=== PATIENT | female | born 1965 | race African-American/Black ===

== ENCOUNTER 2017-09-29 21:08 | Emergency (ER) | payer SELFPAY ==
[~2017-09-29] VITALS: Ht 165.1 cm; Wt 204.1 kg
--- NOTE | 2017-09-29 22:36 | PHYS DOC ---
Past Medical History Past Medical History: CVA, Hypertension Past Surgical History: No Surgical History Alcohol Use: None Drug Use: None Adult General Chief Complaint Chief Complaint: ANXIETY/PANIC ATTACK HPI HPI Preliminary note: 51-year-old female presenting to the emergency department after feeling anxious and nauseous when she got in an argument today. Upon arrival the patient has no symptoms is feeling better and wants to be discharged home. She reports chronic hypertension which she has here at triage. Otherwise physical examination is unremarkable. The patient was then discharged home. Onset today. Location generalized. Duration intermittent. patient is comfortable plan. [id number] discharge instructions Review of Systems Review of Systems Constitutional: Denies fever or chills [] Eyes: Denies change in visual acuity, redness, or eye pain [] HENT: Denies nasal congestion or sore throat [] Respiratory: Denies cough or shortness of breath [] Cardiovascular: No additional information not addressed in HPI [] GI: Denies abdominal pain, nausea, vomiting, bloody stools or diarrhea [] : Denies dysuria or hematuria [] Musculoskeletal: Denies back pain or joint pain [] Integument: Denies rash or skin lesions [] Neurologic: Denies headache, focal weakness or sensory changes [] Endocrine: Denies polyuria or polydipsia [] All other systems were reviewed and found to be within normal limits, except as documented in this note. Allergies Allergies Allergies Coded Allergies Type Severity Reaction Last Updated Verified No Known Drug Allergies 09/29/17 No Physical Exam Physical Exam Constitutional: Well developed, well nourished, no acute distress, non-toxic appearance. [] HENT: Normocephalic, atraumatic, bilateral external ears normal, oropharynx moist, no oral exudates, nose normal. [] Eyes: PERRLA, EOMI, conjunctiva normal, no discharge. [] Neck: Normal range of motion, no tenderness, supple, no stridor. [] Cardiovascular:Heart rate regular rhythm, no murmur [] Lungs & Thorax: Bilateral breath sounds clear to auscultation [] Abdomen: Bowel sounds normal, soft, no tenderness, no masses, no pulsatile masses. [] Skin: Warm, dry, no erythema, no rash. [] Back: No tenderness, no CVA tenderness. [] Extremities: No tenderness, no cyanosis, no clubbing, ROM intact, no edema. [] Neurologic: Alert and oriented X 3, normal motor function, normal sensory function, no focal deficits noted. [] Psychologic: Affect normal, judgement normal, mood normal. [] Current Patient Data Vital Signs Vital Signs Date Time Temp Pulse Resp B/P (MAP) Pulse Ox O2 Delivery O2 Flow Rate FiO2 09/30/17 00:43 70 191/108 (135) 98 Room Air 09/30/17 00:13 19 09/29/17 21:23 98.0 98.0 EKG EKG [] Radiology/Procedures Radiology/Procedures [] Course & Med Decision Making Course & Med Decision Making Pertinent Labs and Imaging studies reviewed. (See chart for details) [] Dragon Disclaimer Dragon Disclaimer This electronic medical record was generated, in whole or in part, using a voice recognition dictation system. Departure Departure Impression: Primary Impression: Nausea Disposition: HOME, SELF-CARE Condition: STABLE Patient Instructions: Nausea, Adult Additional Instructions: Thank you for allowing us to participate in your care today. Followup with your primary care physician in 3 days if your symptoms do not improve. Call your Primary Doctor tomorrow and inform them of your visit today. If you do not have a primary care provider you can ask for a list of our primary care providers. Return to the emergency department you have any new or concerning findings. This should be evaluated by the primary care physician and any necessary consulting services for continued management within a few days after discharge. Return to emergency room if you have any new or concerning symptoms including but not limited to fever, chills, nausea, vomiting, intractable pain, any new rashes, chest pain, shortness of air, uncontrolled bleeding, difficulty breathing, and/or vision loss. HAN CAMARGO MD Sep 29, 2017 22:36
[2017-09-30 00:43] VITALS: BP 191/108
== END 2017-09-30 00:50 | disposition home or self-care (01) ==
LOC: ER 21:08
DX: R11.0 Nausea (principal); F41.9 Anxiety disorder, unspecified; I10 Essential (primary) hypertension; Z86.73 Personal history of transient ischemic attack (TIA), and cerebral infarction without residual deficits
CPT/HCPCS: 99283

== ENCOUNTER 2017-10-01 15:37 | Emergency (ER) | payer OTHER ==
[~2017-10-01] VITALS: Ht 162.6 cm; Wt 204.1 kg
--- NOTE | 2017-10-01 16:40 | RAD ---
TIBIA FIBULA RIGHT, KNEE RIGHT 2V Clinical Indication: fell, pain Comparison: None. Technique: Frontal and lateral views of the right knee are obtained. Frontal and lateral views of the right tibia and fibula are obtained. Findings: Prominent, tricompartmental degenerative changes are present involving the right knee. Joint space narrowing of the medial compartment is present. No definite fracture or dislocation is seen. 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 No significant joint effusion is appreciated. Remainder of the distal tibia and fibula appear intact. Visualized ankle joint appears intact. Surrounding soft tissues demonstrate soft tissue swelling and stranding about the knee. IMPRESSION: No definite fracture or dislocation seen. Tricompartmental degenerative changes of the knee present.
--- NOTE | 2017-10-01 16:48 | PHYS DOC ---
Past Medical History Past Medical History: CVA, Hypertension Additional Past Medical Histor: OBESETY Past Surgical History: No Surgical History Alcohol Use: None Drug Use: None Adult General Chief Complaint Chief Complaint: LOWER EXT injury HPI HPI Patient is a 51 year old female who presents by EMS from home after a fall, states her right knee and right leg "just below the knee" hurts. Patient states that she was in her wheelchair and she decided to go lay down in the bed, when ambulating from the wheelchair to the bedroom she became dizzy and fell down, landed on her right side and states that her right knee and leg are painful. She was not able to get up. She pushed her life alert button and EMS came to pick her up. She denies other injury. Patient states she was here 2 days ago after some type of emotional stress with her family and her blood pressure was elevated. Patient has taken her blood pressure medicine today as prescribed. Patient denies head injury. Patient says she has not been hospitalized for about 4 or 5 years. She had a stroke at that time. She was hospitalized at and then went to a rehabilitation in [place]. Patient tells me she sees a primary care doctor at [facility]. Review of Systems Review of Systems Constitutional: Denies fever or chills [] HENT: Denies nasal congestion or sore throat [] Respiratory: Denies cough or shortness of breath [] GI: Denies abdominal pain, nausea, vomiting, bloody stools or diarrhea [] Musculoskeletal: As in history of present illness Neurologic: Denies headache, focal weakness or sensory changes [] Allergies Allergies Allergies Coded Allergies Type Severity Reaction Last Updated Verified No Known Drug Allergies 09/29/17 No Physical Exam Physical Exam Constitutional: Obese female, alert, warm and dry, mentating normally, no acute distress. HENT: Normocephalic, atraumatic, bilateral external ears normal, nose normal. [ ] Eyes: conjunctiva normal, no discharge. [] Neck: Normal range of motion, no stridor. [] Skin: Warm, dry, no erythema, no rash. [] Extremities: Right leg: Due to the extreme obesity, exam is difficult. There is tenderness of the right anterior lower leg below the knee. It is impossible to determine if there is any deformity or swelling. There is no skin abnormality. Ankle and foot appear unremarkable, right foot is warm with good DP pulse, she is able to wiggle her toes. Neurologic: Alert and oriented X 3, normal motor function, no focal deficits noted. [] Current Patient Data Vital Signs Vital Signs Date Time Temp Pulse Resp B/P (MAP) Pulse Ox O2 Delivery O2 Flow Rate FiO2 10/01/17 19:20 64 18 174/84 (114) 100 10/01/17 15:37 98.5 Room Air 98.5 Lab Values Laboratory Tests Test 10/01/17 17:30 10/01/17 18:10 Urine Collection Type Void Urine Color Yellow Urine Clarity Hazy Urine pH 6.0 Urine Specific [place] >=1.030 Urine Protein >=300 mg/dL (NEG-TRACE) Urine Glucose (UA) 100 mg/dL (NEG) Urine Ketones (Stick) Negative mg/dL (NEG) Urine Blood Trace (NEG) Urine Nitrite Negative (NEG) Urine Bilirubin Negative (NEG) Urine Urobilinogen Dipstick 1.0 mg/dL (0.2 mg/dL) Urine Leukocyte Esterase Negative (NEG) Urine RBC Occ /HPF (0-2) Urine WBC 1-4 /HPF (0-4) Urine Squamous Epithelial Cells Mod /LPF Urine Bacteria Moderate /HPF (0-FEW) Urine Hyaline Casts Occasional /HPF Urine Mucus Slight /LPF White Blood Count 11.2 x10^3/uL (4.0-11.0) H Red Blood Count 4.09 x10^6/uL (3.50-5.40) Hemoglobin 9.4 g/dL (12.0-15.5) L Hematocrit 30.8 % (36.0-47.0) L Mean Corpuscular Volume 75 fL (79-100) L Mean Corpuscular Hemoglobin 23 pg (25-35) L Mean Corpuscular Hemoglobin Concent 31 g/dL (31-37) Red Cell Distribution Width 18.9 % (11.5-14.5) H Platelet Count 155 x10^3/uL (140-400) Neutrophils (%) (Auto) 80 % (31-73) H Lymphocytes (%) (Auto) 10 % (24-48) L Monocytes (%) (Auto) 7 % (0-9) Eosinophils (%) (Auto) 2 % (0-3) Basophils (%) (Auto) 1 % (0-3) Neutrophils # (Auto) 8.9 x10^3uL (1.8-7.7) H Lymphocytes # (Auto) 1.1 x10^3/uL (1.0-4.8) Monocytes # (Auto) 0.8 x10^3/uL (0.0-1.1) Eosinophils # (Auto) 0.2 x10^3/uL (0.0-0.7) Basophils # (Auto) 0.1 x10^3/uL (0.0-0.2) Sodium Level 143 mmol/L (136-145) Potassium Level 4.0 mmol/L (3.5-5.1) Chloride Level 109 mmol/L (98-107) H Carbon Dioxide Level 26 mmol/L (21-32) Anion Gap 8 (6-14) Blood Urea Nitrogen 25 mg/dL (7-20) H Creatinine 3.6 mg/dL (0.6-1.0) H Estimated GFR (Cockcroft-Gault) 16.0 BUN/Creatinine Ratio 7 (6-20) Glucose Level 139 mg/dL (70-99) H Calcium Level 8.5 mg/dL (8.5-10.1) Total Bilirubin 0.4 mg/dL (0.2-1.0) Aspartate Amino Transferase (AST) 22 U/L (15-37) Alanine Aminotransferase (ALT) 14 U/L (14-59) Alkaline Phosphatase 96 U/L (46-116) Total Protein 7.1 g/dL (6.4-8.2) Albumin 2.6 g/dL (3.4-5.0) L Albumin/Globulin Ratio 0.6 (1.0-1.7) L Laboratory Tests 10/01/17 18:10 Laboratory Tests 10/01/17 18:10 EKG EKG [] Radiology/Procedures Radiology/Procedures Two-view x-ray of the right knee and two-view of the right tib-fib read by me. No acute bony abnormality, no fracture. 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 (See chart for details) 51-year-old female, morbidly obese, states she weighs between 405 100 pounds, presents by EMS from home after a fall complaining of right knee/lower leg pain. Patient lives at home. She does have a caregiver but not 24 hours a day. She does use a wheelchair and a walker at home. She does ambulate short distances with a walker in the home. X-rays are negative for acute fracture. I asked the patient to do a trial of ambulation with the help of ED nursing staff to determine whether she will be safe for discharge in terms of her ability to ambulate. Patient did attempt a trial of ambulation. Nursing staff stated that she is able to bear some weight and take a few steps with a walker, but patient stated that she does not feel safe. She still feels weak and also her right leg hurts. For this reason, I went ahead and ordered some lab tests and urinalysis. Labs significant for markedly elevated creatinine. I discussed this with the patient who had never heard any thing about her kidney function. She does not recall anything about having abnormal kidney function. We do not have any previous records or labs on this patient. I advised the patient that she needs to be admitted to the hospital for further evaluation of her elevated creatinine and also her generalized weakness and inability to safely ambulate due to right leg pain. The patient stated that if she needs to be admitted to the hospital, she did really rather to be transferred to [facility]. She's been admitted there before and she feels more comfortable being hospitalized there. I told her that it depends on whether they have a bed available in the case of the patient requested transfer , and patient understands that. I do feel that it would probably be in her best interest also because we do not have urology coverage here and she may very well need some urology evaluation for this elevated creatinine. Also medically indicated for continuity of care, she has been hospitalized there before and is under the care of the family medicine service there. I called the transfer line and spoke with the representatives. I was called back with an accepting physician Dr. Iyer, family medicine. The patient will go to a [facility] floor bed. They will call for nursing report. ED nursing staff arranged ambulance transfer of the patient to [facility]. Transfer paperwork was completed. [] Dragon Disclaimer Dragon Disclaimer This electronic medical record was generated, in whole or in part, using a voice recognition dictation system. Departure Departure Impression: Primary Impression: Fall Additional Impressions: Right leg pain Contusion of right leg Generalized weakness Elevated serum creatinine Renal insufficiency Referrals: NON,STAFF (PCP) Problem Qualifiers ARLINE SHERIFF MD Oct 01, 2017 16:48
[2017-10-01 18:02] LABS: BILIRUBIN,URINE NEGATIVE (NEG); GLUCOSE,URINE 100 mg/dL (NEG); NITRITE,URINE NEGATIVE (NEG); PROTEIN,URINE >=300 mg/dL (NEG-TRACE)
[2017-10-01 18:11] LABS: BACTERIA,URINE MODERATE /HPF (0-FEW); RBC,URINE OCC /HPF (0-2); SQUAMOUS EPITHELIAL CELL,UR MOD /LPF
[2017-10-01 18:32] LABS: BASO # 0.1 x10^3/uL (0.0-0.2); BASO % 1 % (0-3); EOS % 2 % (0-3); HEMATOCRIT 30.8 % (36.0-47.0); HEMOGLOBIN 9.4 g/dL (12.0-15.5); LYMPH # 1.1 x10^3/uL (1.0-4.8); LYMPH % 10 % (24-48); MEAN CORPUSCULAR HEMOGLOBIN 23 pg (25-35); MEAN CORPUSCULAR HGB CONC 31 g/dL (31-37); MEAN CORPUSCULAR VOLUME 75 fL (79-100); MONO % 7 % (0-9); NEUT % 80 % (31-73); PLATELET COUNT 155 x10^3/uL (140-400); RED BLOOD COUNT 4.09 x10^6/uL (3.50-5.40); RED CELL DISTRIBUTION WIDTH 18.9 % (11.5-14.5); WHITE BLOOD COUNT 11.2 x10^3/uL (4.0-11.0)
[2017-10-01 18:42] LABS: CALCIUM 8.5 mg/dL (8.5-10.1); CREATININE 3.6 mg/dL (0.6-1.0)
[2017-10-01 18:51] LABS: ALBUMIN 2.6 g/dL (3.4-5.0); ALBUMIN/GLOBULIN RATIO 0.6 (1.0-1.7); TOTAL BILIRUBIN 0.4 mg/dL (0.2-1.0); TOTAL PROTEIN 7.1 g/dL (6.4-8.2)
[2017-10-01 19:20] VITALS: BP 174/84
== END 2017-10-01 20:50 | disposition short-term general hospital (02) ==
LOC: ER 15:37
DX: S80.11XA Contusion of right lower leg, initial encounter (principal); I10 Essential (primary) hypertension; N28.9 Disorder of kidney and ureter, unspecified; Z86.73 Personal history of transient ischemic attack (TIA), and cerebral infarction without residual deficits; R53.1 Weakness; W05.0XXA Fall from non-moving wheelchair, initial encounter; Y93.89 Activity, other specified; Y99.8 Other external cause status; Y92.89 Other specified places as the place of occurrence of the external cause
CPT/HCPCS: 36415; 73560; 73590; 80053; 81001; 85025; 87086; 99285-25